=== PATIENT | male | born 1990 | race African-American/Black ===

== ENCOUNTER 2016-07-16 19:27 | Emergency (ER) | payer SELFPAY ==
[~2016-07-16] VITALS: Ht 170.2 cm; Wt 69.0 kg
[2016-07-16 19:53] VITALS: BP 160/48
== END 2016-07-16 21:45 | disposition left against medical advice (07) ==
LOC: EDSEX 19:27 → ER 21:35
DX: M79.604 Pain in right leg (principal); Z53.21 Procedure and treatment not carried out due to patient leaving prior to being seen by health care provider

== ENCOUNTER 2016-09-23 21:21 | Emergency (ER) | payer MEDICAID ==
[~2016-09-23] VITALS: Ht 172.7 cm; Wt 69.0 kg
[2016-09-23 23:33] LABS: BASOPHILS % 0.2 % (0.0-2.0); EOSINOPHILS % 0.2 % (0.0-5.0); HEMATOCRIT. 44.7 % (42.0-52.0); HEMOGLOBIN. 15.5 g/dL (14.0-18.0); LYMPHOCYTES % 16.1 % (20.0-50.0); MEAN CORPUSCULAR HEMOGLOBIN 32.3 pg (28.0-32.0); MEAN CORPUSCULAR VOLUME 93.3 fL (80.0-94.0); MEAN PLATELET VOLUME 7.8 fl (7.4-10.4); MONOCYTES % 5.3 % (2.0-8.0); NEUTROPHILS % 78.2 % (40.0-76.0); PLATELET 163 x1000/uL (130-400); RED BLOOD CELL COUNT 4.79 mill/uL (4.7-6.1); RED CELL DISTRIBUTION WIDTH 16.7 % (11.6-14.6)
[2016-09-23 23:39] LABS: CHLORIDE 99 mEq/L (98-107)
[2016-09-23 23:47] LABS: CARBON DIOXIDE 26 mEq/L (21-32); ETHANOL BLOOD 194 mg/dL
[2016-09-24 02:09] VITALS: BP 124/86
== END 2016-09-24 02:23 | disposition home or self-care (01) ==
LOC: ER 21:42
DX: F10.129 Alcohol abuse with intoxication, unspecified (principal); Y90.6 Blood alcohol level of 120-199 mg/100 ml
CPT/HCPCS: 36415; 70450; 73090; 73562; 80053; 80307; 80329; 85025; 99285; G0482

== ENCOUNTER 2018-09-30 22:11 | Emergency (ER) | payer MEDICAID ==
[~2018-09-30] VITALS: Ht 180.3 cm; Wt 61.0 kg
[2018-09-30 22:18] VITALS: BP 109/78
== END 2018-10-01 02:58 | disposition left against medical advice (07) ==
LOC: ER 22:11
DX: T51.0X1A Toxic effect of ethanol, accidental (unintentional), initial encounter (principal); R41.82 Altered mental status, unspecified; F10.129 Alcohol abuse with intoxication, unspecified; Y90.9 Presence of alcohol in blood, level not specified; Z59.0 Homelessness; Y92.410 Unspecified street and highway as the place of occurrence of the external cause
CPT/HCPCS: 99283

== ENCOUNTER 2021-10-12 15:51 | Emergency (ER) | payer MEDICAID ==
[~2021-10-12] VITALS: Ht 182.9 cm; Wt 80.0 kg
[2021-10-12 17:39] LABS: BASOPHILS % 0.6 % (0.0-2.0); EOSINOPHILS % 2.7 % (0.0-5.0); HEMATOCRIT. 41.6 % (42.0-52.0); HEMOGLOBIN. 13.9 g/dL (14.0-18.0); LYMPHOCYTES % 27.2 % (20.0-50.0); MEAN CORPUSCULAR VOLUME 95.5 fL (80.0-94.0); MEAN PLATELET VOLUME 8.3 fl (7.4-10.4); MONOCYTES % 5.6 % (2.0-8.0); NEUTROPHILS % 63.9 % (40.0-76.0); PLATELET 240 x1000/uL (130-400); RED BLOOD CELL COUNT 4.36 mill/uL (4.7-6.1); RED CELL DISTRIBUTION WIDTH 14.5 % (11.6-14.6)
[2021-10-12 17:42] LABS: CHLORIDE 107 mEq/L (98-107)
[2021-10-12 17:51] LABS: ETHANOL BLOOD 45 mg/dL
[2021-10-12 20:00] VITALS: BP 118/77
== END 2021-10-12 20:30 | disposition left against medical advice (07) ==
LOC: ER 15:51
DX: E86.0 Dehydration (principal); Z53.29 Procedure and treatment not carried out because of patient's decision for other reasons
CPT/HCPCS: 36415; 71045; 80053; 80320; 82962; 83605; 83880; 84484; 85025; 93005; 99285; G0480